=== PATIENT | female | born 1995 | race Hispanic/Latino ===

== ENCOUNTER 2016-05-04 16:39 | Emergency (ER) | payer MEDICAID, OTHER ==
--- NOTE | 2016-05-04 17:28 | ERRECORD ---
[facility] EMERGENCY RECORD HPI EYE COMPLAINT (17:16 ABUS) CHIEF COMPLAINT: Patient presents for evaluation of itching, to bilateral eyes. HISTORIAN: History provided by patient, History provided by patient's family, father, 20 yr old F with PMH of asthma and seizures who comes in with 1-2 days of itchy eyes. She was out of town when this started and has not tried any antihistamines. Denies any blurred vision, diplopia, fever, N/V. MECHANISM OF INJURY: Unknown. LOCATION: No localizing symptoms. SEVERITY: Currently symptoms are mild. TIME COURSE: Gradual onset of symptoms, 2, days priror to arrival, There has been no change in the patient's symptoms over time, are constant. ASSOCIATED WITH: No associated contact use, No associated crusting, No associated discharge, No associated facial pain, No associated fever, No associated headache, No associated nausea, No associated vomiting, No associated blurred vision. RELIEVED BY: Patient's condition relieved by nothing. ROS (17:18 ABUS) CONSTITUTIONAL: Negative constitutional review of systems, Historian denies chills, denies fever. EYES: Historian reports itching, reports tearing. CARDIOVASCULAR: Negative cardiovascular review of systems, Historian denies chest pain, denies palpitations. RESPIRATORY: Negative respiratory review of systems, Historian denies cough, denies shortness of breath. GI: Negative gastrointestinal review of systems, Historian denies abdominal pain, denies constipation, denies diarrhea, denies nausea, denies vomiting. GENITOURINARY FEMALE: Negative genitourinary review of systems, Historian denies dysuria, denies frequency. SKIN: Negative skin review of systems, Historian denies rash, denies skin changes. NEUROLOGIC: Negative neurologic review of systems, Historian denies headache. HEMO/LYMPHATIC: Normal hematologic/lymphatic system review, Historian denies abnormal blood clotting. PAST MEDICAL HISTORY (16:59 SFRE) MEDICAL HISTORY: Notes: VERIFIED 11-22-15, Past medical history includes musculoskeletal disorder, Juvenile Arthritis Past medical history includes neurological disease, generalized seizures, Past medical history includes pulmonary disease, asthma. Past medical history includes neurological disease, Epilepsy. verified 11/23/15. FEMALE SURGICAL HISTORY: VERIFIED *, BILATERAL MYRINGOTOMY TUBES, Surgical history of tonsillectomy, Notes: AND &a-1R&a+25V*p+0X*h5853G*c202B*c15G*c2P*p-0X&a-25V&a+1R Name: Karie Crawford : 1995 F20 MedRec: [id number] AcctNum: [id number] Prepared: Esther May 04, 2016 17:24 by Interface Page 1 of 3 pMD [facility] EMERGENCY RECORD ADNOIDS. verified 11/23/15. PSYCHIATRIC HISTORY: Notes: VERIFIED 11-22-15, Notes: PER FATHER SCHOOL HAS DIAGNOSED HER WITH MENTALLY DISABLED, DEVELOPMENTALLY DELAYED. verified 11/23/15. SOCIAL HISTORY: Patient denies alcohol use, Patient denies drug use, Patient has no smoking history, Lives at home, with family, Lives at home, with family, Patient has no smoking history, Patient denies alcohol use, Patient denies drug use. verified 11/23/15. FAMILY HISTORY: Family history is non-contributory to this case. No significant family history. KNOWN ALLERGIES Peanut Butter Flavor CURRENT MEDICATIONS (16:58 SFRE) Atrovent HFA: HFA AEROSOL WITH ADAPTER (GRAM) : Strength - 17 mcg/actuation : INHALATION Patient Dose: 2 puff(s) every 4 hours. Trileptal: TABLET : Strength - 600 mg : ORAL Patient Dose: 600 mg Oral 2 times a day.1 IN AM / 2.5 TABS IN PM. EpiPen: AUTO-INJECTOR (EA) : Strength - 0.3 mg/0.3 mL (1:1,000) : INJECTION Patient Dose: As Needed. VITAL SIGNS (16:56 SFRE) VITAL SIGNS: BP: 129/79, Pulse: 71, Resp: 18, Temp: 98.2 (Tympanic), Pain: 4 (Constant), O2 sat: 98 on Room Air, Time: 05/04/2016 16:56. PHYSICAL EXAM (17:18 ABUS) CONSTITUTIONAL: Vital signs reviewed, Patient afebrile, Pulse normal, Blood pressure normal, Respiratory rate normal, Patient appears non toxic, Patient appears pain free, Patient alert and oriented to person, place and time. EYES: Eye exam included findings of eyelids normal to inspection, Pupils equally round and reactive to light, Extraocular muscles intact, Conjunctiva normal, Sclera normal, Atraumatic, no periorbital ecchymosis, no periorbital edema, no periorbital erythema. NECK: Neck exam normal, Neck exam included findings of normal range of motion, Trachea midline, no meningeal signs, no cervical adenopathy, no tenderness. RESPIRATORY CHEST: Respiratory and chest exam normal, Respiratory exam included findings of no respiratory distress, Breath sounds clear. CARDIOVASCULAR: Cardiovascular assessment normal, Cardiovascular exam included findings of heart rate regular rate and rhythm, Heart sounds normal. &a-1R&a+25V*p+0X*y4206S*c202B*c15G*c2P*p-0X&a-25V&a+1R Name: Karie Crawford : 1995 F20 MedRec: [id number] AcctNum: [id number] Prepared: Esther May 04, 2016 17:24 by Interface Page 2 of 3 pMD [facility] EMERGENCY RECORD ABDOMEN FEMALE: Abdominal exam included findings of abdomen nontender, Bowel sounds normal, no distension, no mass, no pulsatile masses, no peritoneal signs, no rigidity, no guarding, no rebound, Rovsing's sign absent. BACK: Back exam normal, Back exam included findings of normal inspection, range of motion normal, no tenderness. NEURO: Neuro exam normal, Neuro exam findings include patient oriented to person, place and time, Speech normal, Gait normal. SKIN: Skin exam normal, Skin exam included findings of skin warm, dry, and normal in color, no rash. DOCTOR NOTES (17:19 ABUS) TEXT: 20 yr old F with PMH of asthma and seizures who comes in with 1-2 days of itchy eyes. She was out of town when this started and has not tried any antihistamines. Denies any blurred vision, diplopia, fever, N/V. Exam: normal exam. Dx: allergic conjunctivitis or allergies. Plan. Return precautions, reassurance, Benadryl for evening and Claritin during the day. PROBLEM LIST No recorded problems DIAGNOSIS (17:13 ABUS) FINAL: PRIMARY: OTH CHRONIC ALLERGIC CONJUNCTIVITIS. PRESCRIPTION No recorded prescriptions DISPOSITION PATIENT: Disposition Type: Discharge, Disposition: *Discharge Home, Condition: Good. (17:13 ABUS) Patient left the department. (17:22 SFRE) Rosado: AB=MD Juan R, Vincenzo SFRE=ANSLEY Lin, Marbella &a-1R&a+25V*p+0X*s2250K*c202B*c15G*c2P*p-0X&a-25V&a+1R Name: Karie Crawford : 1995 F20 MedRec: [id number] AcctNum: [id number] Prepared: Esther May 04, 2016 17:24 by Interface Page 3 of 3 pMD MTDD
--- NOTE | 2016-05-04 17:33 | PICIS ---
[facility] EMERGENCY RECORD TRIAGE (16:57 SFRE) TRIAGE NOTES: FRANCO ITCHING TO EYES WITH REDNESS. (16:57 SFRE) PATIENT: NAME: Karie Crawford, AGE: 20, GENDER: female, : Sat 1995, TIME OF GREET: TueMay 04, 2016 16:40, PREFERRED LANGUAGE: Welsh, ETHNICITY: or , ECODE BILLING MAP: [facility], SSN: [id number], Zip Code: [address], KG WEIGHT: [phone], PHONE: , , , PERSON ID: [id number], PCP: MD SHIN IMELDA. (16:57 SFRE) COMPLAINT: ITCHY EYES. (16:57 SFRE) ADMISSION: URGENCY: 5 Fast Track, ADMISSION SOURCE: Home, TRANSPORT: Walk-in, BED: ED -1. (16:57 SFRE) IMMUNIZATIONS: Flu vaccine not up to date. (16:59 SFRE) PROVIDERS: TRIAGE NURSE: Marbella Lin RN. (16:57 SFRE) VITAL SIGNS: BP 129/79, Pulse 71, Resp 18, Temp 98.2, (Tympanic), Pain 4, (Constant), O2 Sat 98, on Room Air, Time 05/04/2016 16:56. (16:56 SFRE) PREVIOUS VISIT ALLERGIES: Peanut Butter Flavor. (16:57 SFRE) Peanut Butter Flavor. (16:59 SFRE) KNOWN ALLERGIES Peanut Butter Flavor CURRENT MEDICATIONS (16:58 SFRE) Atrovent HFA: HFA AEROSOL WITH ADAPTER (GRAM) : Strength - 17 mcg/actuation : INHALATION Patient Dose: 2 puff(s) every 4 hours. Trileptal: TABLET : Strength - 600 mg : ORAL Patient Dose: 600 mg Oral 2 times a day.1 IN AM / 2.5 TABS IN PM. EpiPen: AUTO-INJECTOR (EA) : Strength - 0.3 mg/0.3 mL (1:1,000) : INJECTION Patient Dose: As Needed. VITAL SIGNS (16:56 SFRE) VITAL SIGNS: BP: 129/79, Pulse: 71, Resp: 18, Temp: 98.2 (Tympanic), Pain: 4 (Constant), O2 sat: 98 on Room Air, Time: 05/04/2016 16:56. NURSING ASSESSMENT: EYE (16:57 SFRE) CONSTITUTIONAL: Patient arrives ambulatory, Gait steady, History obtained from patient, Patient appears comfortable, Patient cooperative, Patient alert, Oriented to person, place and time, Skin warm, Skin dry, Skin normal in color, Mucous membranes pink, Mucous membranes moist, Patient is well-groomed, Patient complains of ITCHY EYES. PAIN: burning pain, itching pain, Both eyes, &a-1R&a+25V*p+0X*c6734H*c202B*c15G*c2P*p-0X&a-25V&a+1R Name: Karie Crawford : 1995 F20 MedRec: [id number] AcctNum: [id number] Prepared: yelitza May 04, 2016 17:29 by Interface Page 1 of 5 pMD [facility] EMERGENCY RECORD constant, on a scale 0-10 patient rates pain as 4, Pain exacerbated by nothing, Nothing has been tried to alleviate the pain. EYES: Eye assessment findings include orbits normal, Eye lids normal, Conjunctiva normal, Sclera, injected on the left, injected on the right, SLIGHTLY RED, Cornea clear, Iris normal, Pupils equally round and reactive to light. SAFETY: Side rails up, Cart/Stretcher in lowest position, Family at bedside, Call light within reach, Hospital ID band on. NURSING PROCEDURE: DISCHARGE NOTE (17:20 SFRE) DISCHARGE: Patient discharged to home, ambulating without assistance, family driving, accompanied by parent, Summary of Care printed/ provided, Discharge instructions given to patient, Discharge instructions given to father, Simple or moderate discharge teaching performed, by ANSLEY BOOGIE, F/U WITH PCP. RX DIRECTED. RETURN TO ED NEEDED FOR NEW/CONCERNING OR WORSENING SYMPTOMS., Above person(s) verbalized understanding of discharge instructions and follow-up care. HPI EYE COMPLAINT (17:16 ABUS) CHIEF COMPLAINT: Patient presents for evaluation of itching, to bilateral eyes. HISTORIAN: History provided by patient, History provided by patient's family, father, 20 yr old F with PMH of asthma and seizures who comes in with 1-2 days of itchy eyes. She was out of town when this started and has not tried any antihistamines. Denies any blurred vision, diplopia, fever, N/V. MECHANISM OF INJURY: Unknown. LOCATION: No localizing symptoms. SEVERITY: Currently symptoms are mild. TIME COURSE: Gradual onset of symptoms, 2, days priror to arrival, There has been no change in the patient's symptoms over time, are constant. ASSOCIATED WITH: No associated contact use, No associated crusting, No associated discharge, No associated facial pain, No associated fever, No associated headache, No associated nausea, No associated vomiting, No associated blurred vision. RELIEVED BY: Patient's condition relieved by nothing. ROS (17:18 ABUS) CONSTITUTIONAL: Negative constitutional review of systems, Historian denies chills, denies fever. EYES: Historian reports itching, reports tearing. CARDIOVASCULAR: Negative cardiovascular review of systems, Historian denies chest pain, denies palpitations. RESPIRATORY: Negative respiratory review of systems, Historian denies cough, denies shortness of breath. &a-1R&a+25V*p+0X*o2059I*c202B*c15G*c2P*p-0X&a-25V&a+1R Name: Karie Crawford : 1995 F20 MedRec: [id number] AcctNum: [id number] Prepared: Esther May 04, 2016 17:29 by Interface Page 2 of 5 pMD [facility] EMERGENCY RECORD GI: Negative gastrointestinal review of systems, Historian denies abdominal pain, denies constipation, denies diarrhea, denies nausea, denies vomiting. GENITOURINARY FEMALE: Negative genitourinary review of systems, Historian denies dysuria, denies frequency. SKIN: Negative skin review of systems, Historian denies rash, denies skin changes. NEUROLOGIC: Negative neurologic review of systems, Historian denies headache. HEMO/LYMPHATIC: Normal hematologic/lymphatic system review, Historian denies abnormal blood clotting. PAST MEDICAL HISTORY (16:59 SFRE) MEDICAL HISTORY: Notes: VERIFIED 11-22-15, Past medical history includes musculoskeletal disorder, Juvenile Arthritis Past medical history includes neurological disease, generalized seizures, Past medical history includes pulmonary disease, asthma. Past medical history includes neurological disease, Epilepsy. verified 11/23/15. FEMALE SURGICAL HISTORY: VERIFIED , BILATERAL MYRINGOTOMY TUBES, Surgical history of tonsillectomy, Notes: AND ADNOIDS. verified 11/23/15. PSYCHIATRIC HISTORY: Notes: VERIFIED 11-22-15, Notes: PER FATHER SCHOOL HAS DIAGNOSED HER WITH MENTALLY DISABLED, DEVELOPMENTALLY DELAYED. verified 11/23/15. SOCIAL HISTORY: Patient denies alcohol use, Patient denies drug use, Patient has no smoking history, Lives at home, with family, Lives at home, with family, Patient has no smoking history, Patient denies alcohol use, Patient denies drug use. verified 11/23/15. FAMILY HISTORY: Family history is non-contributory to this case. No significant family history. PHYSICAL EXAM (17:18 ABUS) CONSTITUTIONAL: Vital signs reviewed, Patient afebrile, Pulse normal, Blood pressure normal, Respiratory rate normal, Patient appears non toxic, Patient appears pain free, Patient alert and oriented to person, place and time. EYES: Eye exam included findings of eyelids normal to inspection, Pupils equally round and reactive to light, Extraocular muscles intact, Conjunctiva normal, Sclera normal, Atraumatic, no periorbital ecchymosis, no periorbital edema, no periorbital erythema. NECK: Neck exam normal, Neck exam included findings of normal range of motion, Trachea midline, no meningeal signs, no cervical adenopathy, no tenderness. RESPIRATORY CHEST: Respiratory and chest exam normal, Respiratory exam included findings of no respiratory distress, Breath sounds clear. CARDIOVASCULAR: Cardiovascular assessment normal, Cardiovascular exam included findings of heart rate regular rate and rhythm, Heart sounds normal. &a-1R&a+25V*p+0X*v0927P*c202B*c15G*c2P*p-0X&a-25V&a+1R Name: Karie Crawford : 1995 F20 MedRec: [id number] AcctNum: [id number] Prepared: Esther May 04, 2016 17:29 by Interface Page 3 of 5 pMD [facility] EMERGENCY RECORD ABDOMEN FEMALE: Abdominal exam included findings of abdomen nontender, Bowel sounds normal, no distension, no mass, no pulsatile masses, no peritoneal signs, no rigidity, no guarding, no rebound, Rovsing's sign absent. BACK: Back exam normal, Back exam included findings of normal inspection, range of motion normal, no tenderness. NEURO: Neuro exam normal, Neuro exam findings include patient oriented to person, place and time, Speech normal, Gait normal. SKIN: Skin exam normal, Skin exam included findings of skin warm, dry, and normal in color, no rash. EVENTS TRANSFER: Triage to Emergency Main ED -[facility]. (TueMay 04, 2016 16:57 SFRE) Removed from Emergency Main ED -[facility]. (17:22 SFRE) DOCTOR NOTES (17:19 ABUS) TEXT: 20 yr old F with PMH of asthma and seizures who comes in with 1-2 days of itchy eyes. She was out of town when this started and has not tried any antihistamines. Denies any blurred vision, diplopia, fever, N/V. Exam: normal exam. Dx: allergic conjunctivitis or allergies. Plan. Return precautions, reassurance, Benadryl for evening and Claritin during the day. PROBLEM LIST No recorded problems DIAGNOSIS (17:13 ABUS) FINAL: PRIMARY: OTH CHRONIC ALLERGIC CONJUNCTIVITIS. DISPOSITION PATIENT: Disposition Type: Discharge, Disposition: *Discharge Home, Condition: Good. (17:13 ABUS) Patient left the department. (17:22 SFRE) INSTRUCTION (17:15 ABUS) DISCHARGE: ALLERGIC CONJUNCTIVITIS. FOLLOWUP: MD ALEIDA, [place], [facility], [address] [place] [id number], [phone], Follow up with Primary Care Physician in 1-2 days. SPECIAL: Please keep any upcoming appointments with your primary doctor or call the referral provided to you today to establish a follow up evaluation or ongoing medical care. Please come back if you start to have worsening itching, redness, fever, vomiting, or any symptoms that concern you. Use Benadryl 25 mg by mouth tonight and then Claritin (or loratidine) during the day. Can also try Zaditor eye drops. PRESCRIPTION No recorded prescriptions &a-1R&a+25V*p+0X*y7158N*c202B*c15G*c2P*p-0X&a-25V&a+1R Name: Karie Crawford : 1995 F20 MedRec: [id number] AcctNum: [id number] Prepared: TueMay 04, 2016 17:29 by Interface Page 4 of 5 pMD [facility] EM[facility]GENC[facility] RECORD IMAGING *DISCHARGE INSTRUCTIONS RECEIPT: Image captured from scanner. (17:19 JPER) *SUPPLY CHARGE SHEET: Image captured from scanner. (17:20 JPER) ADMIN DIGITAL SIGNATURE: MD Pete Anthony. (17:20 ABUS) ANSLEY Lin, Marbella. (17:21 SFRE) Rosado: ABUS=MD Pete Anthony JPER=ANSLEY Hernandez Jana SFRE=ANSLEY Lin, Marbella &a-1R&a+25V*p+0X*e1631A*c202B*c15G*c2P*p-0X&a-25V&a+1R Name: Karie Crawford : 1995 F20 MedRec: [id number] AcctNum: [id number] Prepared: TueMay 04, 2016 17:29 by Interface Page 5 of 5 pMD MTDD
== END 2016-05-04 17:15 | disposition home or self-care (01) ==
LOC: MADERS 16:39
DX: H10.45 Other chronic allergic conjunctivitis (principal); J45.909 Unspecified asthma, uncomplicated; G40.909 Epilepsy, unspecified, not intractable, without status epilepticus; Z90.89 Acquired absence of other organs; Z79.899 Other long term (current) drug therapy
CPT/HCPCS: 99282

== ENCOUNTER 2016-10-13 14:57 | Emergency (ER) | payer MEDICAID, OTHER ==
[~2016-10-13 14:57] MED LIST: predniSONE 20 MG TAB ONE
[2016-10-13] MEDS ORDERED: predniSONE 20 MG TAB ONE (16:03)
== END 2016-10-13 16:10 | disposition home or self-care (01) ==
LOC: MADERS 14:57
DX: J45.909 Unspecified asthma, uncomplicated (principal); G40.909 Epilepsy, unspecified, not intractable, without status epilepticus; Z79.899 Other long term (current) drug therapy
CPT/HCPCS: J7506; J7620

== ENCOUNTER 2017-06-19 16:09 | Emergency (ER) | payer OTHER ==
[2017-06-19 17:21] LABS: Pregnancy Test - Urine (BHCG) Negative (Negative)
[2017-06-19 17:22] LABS: Pregu Control Background? CLEAR/WHITE (CLR/WHITE); Pregu Control Bar Appear? YES (CONTROL BAR)
[2017-06-19] MEDS ORDERED: Ondansetron ODT 4 MG TAB ONE (17:38)
== END 2017-06-19 17:47 | disposition home or self-care (01) ==
LOC: MADERS 16:09
DX: A08.4 Viral intestinal infection, unspecified (principal); J45.909 Unspecified asthma, uncomplicated; G40.909 Epilepsy, unspecified, not intractable, without status epilepticus; Z79.899 Other long term (current) drug therapy
CPT/HCPCS: 81025; 99283; Q0162

== ENCOUNTER 2017-07-01 04:46 | Emergency (ER) | payer OTHER ==
[2017-07-01 05:31] LABS: #Basophils 0.1 thou/uL (0.0-0.2); #Eosinphils 0.2 thou/uL (0.0-0.7); #Lymphocytes 2.1 thou/uL (1.20-3.40); #Monocytes 0.6 thou/uL (0.11-0.59); #Neutrophils 4.1 thou/uL (1.40-6.50); %Basophils 0.9 % (0.0-1.0); %Eosinophils 2.2 % (0.0-10.0); %Lymphocytes 30.2 % (28.0-48.0); %Monocytes 7.9 % (0.0-4.0); %Neutrophils 58.7 % (31.0-61.0); Hemoglobin 11.9 g/dL (12.0-16.0); Mean Corpuscular Hemoglobin 28.5 pg (25.0-35.0); Mean Corpuscular Volume 86.3 fl (77.0-87.0); Mean Platelet Volume 7.5 fL (7.4-10.4); Platelet Count 248 thou/uL (130-400); RBC Distribution Width 12.4 % (11.5-14.5); Red Blood Cell (RBC) Count 4.17 mill/uL (4.00-5.20); White Blood Cell (WBC) Count 6.9 thou/uL (4.8-10.8)
[2017-07-01 05:47] LABS: Anion Gap 14 mmol/L (10-20); BUN (Urea Nitrogen) 10 mg/dL (7.0-18.7); Calc. Creatinine Clearance 0 mL/min (70-130); Carbon Dioxide 22 mmol/L (22-29); Chloride 105 mmol/L (98-107); Estimated GFR-MDRD Greater than 90; Glucose 84 mg/dL (70-105); Potassium 4.5 mmol/L (3.5-5.1); Sodium 136 mmol/L (136-145)
[2017-07-01 05:53] LABS: Bilirubin Negative (Negative); Blood, Urine Trace (Negative); Clarity Clear (Clear); Glucose, Urine (Dipstick) Negative (Negative); Leukocyte Negative (Negative); Nitrite Negative (Negative); Protein, Urine (Dipstick) Negative (Neg-Trace); Urobilinogen 0.2 mg/dL (0.2-1.0)
[2017-07-01 06:14] LABS: RBC/HPF 0-3 HPF (0-3); Squamous Epithelial 0-3 HPF (0-3); WBC/HPF 0-3 HPF (0-3)
[2017-07-01 06:15] LABS: Bacteria/HPF None Seen HPF (None Seen); Pregnancy Test - Urine (BHCG) Negative (Negative); Pregu Control Background? CLEAR/WHITE (CLR/WHITE); Pregu Control Bar Appear? YES (CONTROL BAR)
[2017-07-01] MEDS ORDERED: Diazepam 5 MG TAB ONE (06:18)
== END 2017-07-01 07:02 | disposition home or self-care (01) ==
LOC: MADERS 04:46
DX: G40.909 Epilepsy, unspecified, not intractable, without status epilepticus (principal); M08.90 Juvenile arthritis, unspecified, unspecified site; J45.909 Unspecified asthma, uncomplicated; Z79.899 Other long term (current) drug therapy
CPT/HCPCS: 36415; 80048; 81003; 81015; 81025; 85025; 99283

== ENCOUNTER 2017-11-16 10:32 | Emergency (ER) | payer OTHER ==
[2017-11-16 11:21] LABS: Bilirubin Negative (Negative); Blood, Urine Negative (Negative); Glucose, Urine (Dipstick) Negative (Negative); Leukocyte Trace (Negative); Nitrite Negative (Negative); Protein, Urine (Dipstick) Trace mg/dL (Neg-Trace); Urobilinogen 0.2 mg/dL (0.2-1.0); pH, Urine 7.5 (5.0-9.0)
[2017-11-16 11:25] LABS: Clarity Cloudy (Clear)
[2017-11-16 11:30] LABS: RBC/HPF 0-3 HPF (0-3)
[2017-11-16 11:31] LABS: Bacteria/HPF 2+ HPF (None Seen); Crystals/HPF RARE TRIPLE PHOS HPF (Negative)
[2017-11-16 11:51] LABS: #Basophils 0.1 thou/uL (0.0-0.2); #Eosinphils 0.1 thou/uL (0.0-0.7); #Lymphocytes 2.1 thou/uL (1.20-3.40); #Monocytes 0.4 thou/uL (0.11-0.59); #Neutrophils 2.9 thou/uL (1.40-6.50); %Basophils 1.1 % (0.0-1.0); %Lymphocytes 38.1 % (21.0-51.0); %Neutrophils 51.8 % (42.0-75.0); Hemoglobin 10.8 g/dL (12.0-16.0); Mean Corpuscular HGB CONC 33.6 g/dL (32.0-36.0); Mean Corpuscular Hemoglobin 26.7 pg (27.0-31.0); Mean Corpuscular Volume 79.5 fL (78.0-98.0); Mean Platelet Volume 7.6 fL (7.4-10.4); Platelet Count 236 thou/uL (130-400); RBC Distribution Width 12.7 % (11.5-14.5); Red Blood Cell (RBC) Count 4.04 mill/uL (4.20-5.40); White Blood Cell (WBC) Count 5.6 thou/uL (4.8-10.8)
[2017-11-16 12:04] LABS: ALT (SGPT) 17 U/L (8-55); AST (SGOT) 15 U/L (5-34); Albumin 3.8 g/dL (3.5-5.0); Alkaline Phosphatase 186 U/L (40-150); Anion Gap 15 mmol/L (10-20); BUN (Urea Nitrogen) 8 mg/dL (7.0-18.7); Bilirubin, Total 0.2 mg/dL (0.2-1.2); Calc. Creatinine Clearance 0 mL/min (70-130); Calcium 8.7 mg/dL (7.8-10.44); Carbon Dioxide 20 mmol/L (22-29); Chloride 105 mmol/L (98-107); Estimated GFR-MDRD Greater than 90; Globulin 3.4 g/dL (2.4-3.5); Glucose 86 mg/dL (70-105); Protein, Total 7.2 g/dL (6.0-8.3); Sodium 136 mmol/L (136-145)
--- NOTE | 2017-11-16 12:22 | CT ---
CT BRAIN: HISTORY: Postictal state. Seizures. COMPARISON: 07/03/2017 TECHNIQUE: Noncontrast enhanced CT images of the brain are obtained on 11/16/2017. FINDINGS: Noncontrast enhanced CT images of the brain are obtained. The brain is unremarkable. No evidence of intracranial masses, hemorrhages, strokes, or contusions seen. The ventricles are of normal size. IMPRESSION: Normal CT brain. POS: [facility]
== END 2017-11-16 12:30 | disposition home or self-care (01) ==
LOC: MADERS 10:32
DX: G40.909 Epilepsy, unspecified, not intractable, without status epilepticus (principal); I10 Essential (primary) hypertension; J45.909 Unspecified asthma, uncomplicated; M08.90 Juvenile arthritis, unspecified, unspecified site; Z79.899 Other long term (current) drug therapy
CPT/HCPCS: 70450; 80053; 80177; 81003; 81015; 85025; 87086; 93005

== ENCOUNTER 2018-05-23 13:56 | Emergency (ER) | payer OTHER ==
[~2018-05-23 13:56] MED LIST changes: +Sterile Water Irrigation 250 ML BOT ONE; -predniSONE 20 MG TAB ONE
[2018-05-23] MEDS ORDERED: Adacel (T-DAP) 0.5 ML SYRINGE ONE (14:15)
[2018-05-23] MEDS ORDERED: Acetaminophen 500 MG TAB ONE (14:15)
== END 2018-05-23 14:40 | disposition home or self-care (01) ==
LOC: MADERS 13:56
DX: S61.412A Laceration without foreign body of left hand, initial encounter (principal); J45.909 Unspecified asthma, uncomplicated; G40.909 Epilepsy, unspecified, not intractable, without status epilepticus; Z79.899 Other long term (current) drug therapy; W26.8XXA Contact with other sharp object(s), not elsewhere classified, initial encounter
CPT/HCPCS: 12001; 90471; 90715

== ENCOUNTER 2018-05-28 15:00 | Emergency (ER) | payer OTHER ==
[2018-05-28 16:15] LABS: #Eosinphils 0.1 thou/uL (0.0-0.7); #Monocytes 0.4 thou/uL (0.11-0.59); #Neutrophils 3.5 thou/uL (1.40-6.50); %Basophils 0.7 % (0.0-1.0); %Eosinophils 2.1 % (0.0-10.0); %Lymphocytes 33.2 % (21.0-51.0); %Monocytes 6.3 % (0.0-10.0); %Neutrophils 57.7 % (42.0-75.0); Hemoglobin 11.9 g/dL (12.0-16.0); Mean Corpuscular Hemoglobin 26.7 pg (27.0-31.0); Mean Corpuscular Volume 83.4 fL (78.0-98.0); Mean Platelet Volume 8.5 fL (7.4-10.4); Platelet Count 242 thou/uL (130-400); RBC Distribution Width 13.5 % (11.5-14.5); Red Blood Cell (RBC) Count 4.45 mill/uL (4.20-5.40)
[2018-05-28 16:27] LABS: ALT (SGPT) 17 U/L (8-55); AST (SGOT) 17 U/L (5-34); Albumin 4.2 g/dL (3.5-5.0); Alkaline Phosphatase 222 U/L (40-150); Anion Gap 14 mmol/L (10-20); BUN (Urea Nitrogen) 6 mg/dL (7.0-18.7); Bilirubin, Total 0.6 mg/dL (0.2-1.2); Calc. Creatinine Clearance 0 mL/min (70-130); Calcium 9.1 mg/dL (7.8-10.44); Carbon Dioxide 19 mmol/L (22-29); Chloride 106 mmol/L (98-107); Estimated GFR-MDRD Greater than 90; Globulin 3.7 g/dL (2.4-3.5); Glucose 85 mg/dL (70-105); Magnesium 2.2 mg/dL (1.6-2.6); Potassium 3.8 mmol/L (3.5-5.1); Protein, Total 7.9 g/dL (6.0-8.3); Sodium 135 mmol/L (136-145)
[2018-05-28 16:38] LABS: Bilirubin Negative (Negative); Blood, Urine Negative (Negative); Clarity Clear (Clear); Glucose, Urine (Dipstick) Negative (Negative); Leukocyte Negative (Negative); Nitrite Negative (Negative); Protein, Urine (Dipstick) Negative (Neg-Trace); Urobilinogen 0.2 mg/dL (0.2-1.0)
[2018-05-28 16:39] LABS: Pregnancy Test - Urine (BHCG) Negative (Negative)
[2018-05-28 16:40] LABS: Pregu Control Background? CLEAR/WHITE (CLR/WHITE); Pregu Control Bar Appear? YES (CONTROL BAR)
[2018-05-28] MEDS ORDERED: Sodium Chloride 0.9% 1,000 ML ONE (16:44)
[2018-05-28 16:49] LABS: Amphetamine Not Detected (NotDetected); Barbiturates Screen Not Detected (NotDetected); Benzodiazepine Screen Detected (NotDetected); Cocaine Metabolite Screen Not Detected (NotDetected); Methadone Not Detected (NotDetected); Methamphetamine Not Detected (NotDetected); Opiate Screen Not Detected (NotDetected); Oxycodone Screen Not Detected (NotDetected); Phencyclidine (PCP) Not Detected (NotDetected); THC/Cannabinoid Screen Not Detected (NotDetected); Tricyclic Screen Not Detected (NotDetected)
[2018-05-28 16:50] LABS: Medtox Control Line Valid? VALID (VALID)
[2018-05-28] MEDS ORDERED: Lorazepam 1 MG TAB ONE (17:42)
== END 2018-05-28 18:00 | disposition home or self-care (01) ==
LOC: MADERS 15:00
DX: G40.909 Epilepsy, unspecified, not intractable, without status epilepticus (principal); Z79.899 Other long term (current) drug therapy; J45.909 Unspecified asthma, uncomplicated
CPT/HCPCS: 80053; 80306; 81003; 81025; 83735; 84443; 85025; 96360; J7050

== ENCOUNTER 2020-08-10 20:03 | Emergency (ER) | payer OTHER ==
[2020-08-10] MEDS ORDERED: Ibuprofen 400 MG TAB ONE (20:35)
[2020-08-10] MEDS ORDERED: methylPREDNISolone Sod Succ/PF 125 MG/2 ML VIAL ONE (20:35)
[2020-08-10 22:10] LABS: ALT (SGPT) 30 U/L (8-55); AST (SGOT) 27 U/L (5-34); Albumin 3.8 g/dL (3.5-5.0); Alkaline Phosphatase 152 U/L (40-110); Anion Gap 14 mmol/L (10-20); BUN (Urea Nitrogen) 6 mg/dL (7.0-18.7); Bilirubin, Total 0.2 mg/dL (0.2-1.2); Calc. Creatinine Clearance 0 mL/min (70-130); Calcium 8.3 mg/dL (7.8-10.44); Carbon Dioxide 20 mmol/L (22-29); Chloride 94 mmol/L (98-107); Globulin 3.3 g/dL (2.4-3.5); Glucose 85 mg/dL (70-105); Potassium 3.3 mmol/L (3.5-5.1); Protein, Total 7.1 g/dL (6.0-8.3)
[2020-08-10 22:11] LABS: Sodium 125 mmol/L (136-145)
[2020-08-10 22:21] LABS: White Blood Cell (WBC) Count 5.7 thou/uL (4.8-10.8)
[2020-08-10 22:22] LABS: Hemoglobin 9.4 g/dL (12.0-16.0); Mean Corpuscular Volume 79.2 fL (78.0-98.0); Red Blood Cell (RBC) Count 3.36 mill/uL (4.20-5.40)
[2020-08-10 22:24] LABS: Mean Corpuscular HGB CONC 30.3 g/dL (32.0-36.0); Mean Platelet Volume 9.6 fL (7.4-10.4); Platelet Count 231 thou/uL (130-400); RBC Distribution Width 14.3 % (11.5-14.5)
[2020-08-10 22:25] LABS: #Eosinphils 0.1 thou/uL (0.0-0.7); #Lymphocytes 1.8 thou/uL (1.20-3.40); #Monocytes 0.5 thou/uL (0.11-0.59); #Neutrophils 3.4 thou/uL (1.40-6.50); %Basophils 0.8 % (0.0-1.0); %Eosinophils 1.3 % (0.0-10.0); %Monocytes 8.2 % (0.0-10.0); %Neutrophils 58.8 % (42.0-75.0)
[2020-08-11 13:42] LABS: SARS-CoV-2 PCR by NAA Not Detected (NotDetected)
== END 2020-08-10 21:30 | disposition home or self-care (01) ==
LOC: MADERS 20:03
DX: J45.901 Unspecified asthma with (acute) exacerbation (principal); Z20.822 Contact with and (suspected) exposure to COVID-19; M19.90 Unspecified osteoarthritis, unspecified site; G40.909 Epilepsy, unspecified, not intractable, without status epilepticus
CPT/HCPCS: 71045; 80053; 85025; 87635; 96374; J2930; U0002; U0003; U0005

== ENCOUNTER 2020-12-12 16:12 | Emergency (ER) | payer OTHER ==
[2020-12-13 16:31] LABS: SARS-CoV-2 PCR by NAA DETECTED (NotDetected)
== END 2020-12-12 18:03 | disposition home or self-care (01) ==
LOC: MADERS 16:12
DX: U07.1 COVID-19 (principal); M08.90 Juvenile arthritis, unspecified, unspecified site; G40.909 Epilepsy, unspecified, not intractable, without status epilepticus
CPT/HCPCS: 99283; U0003; U0005

== ENCOUNTER 2021-01-22 12:37 | Outpatient (CLI) | payer OTHER ==
[2021-01-22 13:05] LABS: #Basophils 0.1 thou/uL (0.0-0.2); #Eosinphils 0.1 thou/uL (0.0-0.7); #Lymphocytes 1.7 thou/uL (1.20-3.40); #Monocytes 0.4 thou/uL (0.11-0.59); #Neutrophils 2.3 thou/uL (1.40-6.50); %Basophils 1.3 % (0.0-1.0); %Eosinophils 3.3 % (0.0-10.0); %Lymphocytes 36.8 % (21.0-51.0); %Monocytes 7.6 % (0.0-10.0); Anisocytosis SLIGHT = 6-15 cells (100X) (0-5/hpf); Hemoglobin 10.2 g/dL (12.0-16.0); MDiff Complete? YES; Mean Corpuscular HGB CONC 30.1 g/dL (32.0-36.0); Mean Corpuscular Hemoglobin 23.7 pg (27.0-31.0); Mean Corpuscular Volume 78.9 fL (78.0-98.0); Mean Platelet Volume 7.8 fL (7.4-10.4); Microcytosis SLIGHT = 6-15 cells (100X) (0-5/hpf); Ovalocytes SLIGHT = 2-5 cells (100X) (0-1/hpf); Platelet Count 214 thou/uL (130-400); Poikilocytosis SLIGHT = 6-15 cells (100X) (0-5/hpf); Red Blood Cell (RBC) Count 4.29 mill/uL (4.20-5.40); Tear Drops SLIGHT = 2-5 cells (100X) (0-1/hpf); White Blood Cell (WBC) Count 4.5 thou/uL (4.8-10.8)
[2021-01-22 13:10] LABS: Anion Gap 13 mmol/L (10-20); BUN (Urea Nitrogen) 6 mg/dL (7.0-18.7); Calc. Creatinine Clearance 0 mL/min (70-130); Carbon Dioxide 19 mmol/L (22-29); Chloride 102 mmol/L (98-107); Glucose 79 mg/dL (70-105); Sodium 130 mmol/L (136-145)
== END 2021-01-22 12:38 | disposition home or self-care (01) ==
LOC: MADLAB 12:37
PROVIDERS: ATTEND Family Medicine
DX: E87.1 Hypo-osmolality and hyponatremia (principal); E87.6 Hypokalemia; D64.9 Anemia, unspecified
CPT/HCPCS: 36415; 80048; 82728; 85025

== ENCOUNTER 2021-02-04 11:49 | Outpatient (CLI) | payer OTHER ==
[2021-02-04 12:24] LABS: Anion Gap 13 mmol/L (10-20); BUN (Urea Nitrogen) 8 mg/dL (7.0-18.7); Calc. Creatinine Clearance 0 mL/min (70-130); Calcium 9.1 mg/dL (7.8-10.44); Carbon Dioxide 20 mmol/L (22-29); Chloride 105 mmol/L (98-107); Glucose 83 mg/dL (70-105); Potassium 3.9 mmol/L (3.5-5.1); Sodium 134 mmol/L (136-145)
== END 2021-02-04 11:50 | disposition home or self-care (01) ==
LOC: MADLAB 11:49
PROVIDERS: ATTEND Family Medicine
DX: E87.1 Hypo-osmolality and hyponatremia (principal)
CPT/HCPCS: 36415; 80048

== ENCOUNTER 2021-10-18 08:38 | Emergency (ER) | payer OTHER | END 2021-10-18 09:30 | disposition home or self-care (01) | LOC: MADERS 08:38 | DX: U07.1 COVID-19 (principal); G40.909 Epilepsy, unspecified, not intractable, without status epilepticus; Z79.899 Other long term (current) drug therapy | CPT/HCPCS: 87804; 99284; U0003; U0005 ==